=== PATIENT | male | born 1940 | race Caucasian/White ===

== ENCOUNTER 2024-08-13 09:59 | Day surgery (SDC) | payer MEDICARE, BC ==
[~2024-08-13 09:59] MED LIST: LIDOCAINE 1% (10MG/ML) FOR IV START INTRADERMA PRN
[2024-08-13] MEDS: IV FLUID CONTINUATION 1,000 ML IV ONE (10:46)
[2024-08-13 10:52] VITALS: TEMP 97.5
[2024-08-13] MEDS: LACTATED RINGERS 1,000 ML IV SCH (10:52)
[2024-08-13] MEDS ORDERED: PROPOFOL 10 MG/ML 20 ML VIAL IV ONE (12:22)
--- NOTE | 2024-08-13 12:40 | P.PCN ---
Date of Procedure: 08/13/24 Procedure(s) Performed: BRIEF HISTORY: Patient is a 83-year-old pleasant white male scheduled for an elective colonoscopy as a part of screening for history of colon polyps last colonoscopy was 5 years ago and was noted to have an adenoma. PROCEDURE PERFORMED: Colonoscopy with cold biopsy. PREOPERATIVE DIAGNOSIS: Screening for history of colon polyps. IV sedation per Anesthesia. PROCEDURE: After informed consent was obtained, the patient, was brought into the endoscopy unit. IV sedation was administered by Anesthesia under continuous monitoring. Digital rectal examination was normal. Initially the Olympus CF-160 flexible video colonoscope was then inserted in the rectum, gradually advanced i nto the cecum without any difficulty. Careful examination was performed as the scope was gradually being withdrawn. Ileocecal valve and the appendiceal orifice were visualized and appeared normal. Prep was excellent. Mucosa of the cecum, ascending colon, appeared normal. The transverse colon there was a 5 mm polyp that was removed by cold biopsy. In the descending colon there was another 5 mm polyp that was removed by cold biopsy. Scattered left-sided diverticulosis seen. Rest of the transverse colon, descending colon, sigmoid colon, and rectum appeared normal. Retroflexion was performed in the rectum and small internal hemorrhoids. Were seen. The patient tolerated the procedure well. IMPRESSION: 5 mm transverse colon polyp status post cold biopsy 5 mm descending colon polyp status post cold biopsy Scattered sigmoid diverticulosis Grade 2 internal hemorrhoids RECOMMENDATIONS: Findings of this examination were discussed with the patient as well as his family. He was advised to be on high-fiber diet and take fiber supplements on a regular basis..
[2024-08-13 12:56] VITALS: RESP 16
[2024-08-13 13:11] VITALS: BP 115/61; PULSE 72
== END 2024-08-13 13:35 | disposition home or self-care (01) ==
LOC: ORWHC2ENDO 09:59
PROVIDERS: ATTEND Internal Medicine Gastroenterology
DX: Z12.11 Encounter for screening for malignant neoplasm of colon (principal); D12.4 Benign neoplasm of descending colon; K63.5 Polyp of colon; K64.1 Second degree hemorrhoids; K57.30 Diverticulosis of large intestine without perforation or abscess without bleeding; Z86.0101 Personal history of adenomatous and serrated colon polyps; Z87.19 Personal history of other diseases of the digestive system; Z79.899 Other long term (current) drug therapy
CPT/HCPCS: 45380; J2704; 88305